=== PATIENT | male | born 1985 | race Caucasian/White ===

== ENCOUNTER 2024-09-26 02:43 | Emergency (ER) | payer MEDICAID ==
[~2024-09-26] VITALS: Ht 185.4 cm; Wt 81.8 kg
[~2024-09-26 02:43] MED LIST: HYDR1TAB PO; IBUP-1984 PO; NO HOME MEDS
[2024-09-26] MEDS: aspirin 81mg tab.chew PO ONE (03:12)
[2024-09-26 03:15] VITALS: BP 141/98; PULSE 99; RESP 16; TEMP 98.4; O2SAT 100
== END 2024-09-26 03:17 | disposition home or self-care (01) ==
LOC: ER 02:45
DX: R60.0 Localized edema (principal); I87.8 Other specified disorders of veins; F15.90 Other stimulant use, unspecified, uncomplicated; F17.200 Nicotine dependence, unspecified, uncomplicated; Z79.1 Long term (current) use of non-steroidal anti-inflammatories (NSAID); Z79.899 Other long term (current) drug therapy; Z72.89 Other problems related to lifestyle; Z98.890 Other specified postprocedural states
CPT/HCPCS: 99282